=== PATIENT | female | born 1980 | race Caucasian/White ===

== ENCOUNTER 2021-03-08 19:47 | Emergency (ER) | payer OTHER, SELFPAY ==
--- NOTE | ~2021-03-08 | CT_ITS ---
EXAMINATION: CT abdomen pelvis w con DATE: 03/08/2021 22:16 INDICATION: Lower abdominal pain and vomiting TECHNIQUE: Computed tomography (CT) of the abdomen and pelvis was performed with 100 cc Omnipaque 350 intravenous contrast. The dose-length product was 429.16 mGy-cm. Automated exposure control and iter ative reconstruction technique were employed. COMPARISON: None. FINDINGS: There are calcified granulomas in the lung bases. Heart size normal. No significant pleural or pericardial effusion. No significant vascular abnormality. No lymphadenopathy. Small hiatal herni a. Fatty infiltration of the liver. Status post cholecystectomy. The spleen, pancreas, adrenal glands and kidneys are unremarkable. There is mild diffuse subcutaneous edema with multiple subcutaneous no dules, likely injection granulomas. No abnormal pelvic masses or fluid collections. Nonobstructive raghavendra wel gas pattern. Normal appendix. No free air or free fluid. No acute osseous abnormality. No lytic o r blastic lesions. IMPRESSION: 1. No acute abdominal abnormality. 2: Small hiatal hernia. 3: Hepatic steatosis. Reviewed, dictated and finalized at location A.
[2021-03-08 19:50] VITALS: BP 156/120; PULSE 122; RESP 18; TEMP 36.8; O2SAT 98
[2021-03-08 20:09] LABS: Basophils Percent Auto 0.3 % (0.2-1.2); Eosinophils Percent Auto 0.1 % (0-4.4); Hematocrit 40.9 % (37.0-47.0); Hemoglobin 13.7 g/dL (12.0-15.0); Immature Granulocyte Absolute 0.03 K/mm3 (0.00-0.031); Immature Granulocyte Percent A 0.3 % (0-0.5); Lymphocytes Absolute Auto 1.37 K/mm3 (0.9-3.2); Lymphocytes Percent Auto 13.7 % (18.3-44.2); Mean Corpuscular HGB Conc 33.5 g/dl (32-36); Mean Corpuscular Hemoglobin 28.5 pg (26-34); Mean Corpuscular Volume 85.2 fl (80-100); Mean Platelet Volume 9.8 fl (7.4-10.4); Monocytes Absolute Auto 0.4 K/mm3 (0.1-0.6); Monocytes Percent Auto 4.4 % (2.6-8.5); Neutrophils Absolute Auto 8.1 K/mm3 (1.3-6.7); Neutrophils Percent Auto 81.2 % (45.5-73.1); Platelet Count Result 367 k/mm3 (150-375); Red Cell Distribution Width 13.5 % (11.5-14.5)
[2021-03-08 20:18] LABS: Lipase 75 U/L (23-300)
[2021-03-08 20:28] LABS: Glucose Point of Care 215 mg/dl (65-105)
[2021-03-08] MEDS: Please add drug allergy info to patient profile. 1 EACH XX (20:30)
[2021-03-08] MEDS: ONDANSETRON INJ 4 MG/2 ML VIAL IV PUSH (20:31)
[2021-03-08] MEDS: SODIUM CHLORIDE 0.9% IV 1,000 ML 999 ML IV CONT ×2 (20:31→21:18)
[2021-03-08] MEDS: FAMOTIDINE 20 MG/2 ML VIAL IV PUSH (20:31)
[2021-03-08 20:34] VITALS: BP 194/116; PULSE 108; RESP 18; O2SAT 100
[2021-03-08 21:14] LABS: Alanine Aminotransferase 20 U/L (4-35); Albumin Level 4.9 g/dL (3.5-5.1); Alkaline Phosphatase 103 U/L (38-126); Anion Gap 18 mmol/L (8-16); Aspartate Amino Transferase 32 U/L (14-36); Bilirubin,Total 0.6 mg/dL (0.2-1.3); Blood Urea Nitrogen 14 mg/dL (7-17); Calcium 10.4 mg/dL (8.4-10.2); Carbon Dioxide 21 mmol/L (22-30); Chloride 99 mmol/L (98-107); Estimated CRCL calculation 105 ml/min; Estimated Glomerular Filt Rate > 60; Glucose 221 mg/dL (65-105); Potassium 3.6 mmol/L (3.4-5.0); Sodium 138 mmol/L (137-145)
[2021-03-08] MEDS: MORPHINE SULFATE (*CRX) 4 MG/ML INJ IV PUSH (21:17)
[2021-03-08 21:23] LABS: Magnesium 1.4 mg/dL (1.6-2.3); Phosphorus 2.8 mg/dL (2.5-4.5)
[2021-03-08] MEDS: LORazepam INJ (*CRX) 2 MG/ML VIAL 1 MG IV PUSH (21:24)
[2021-03-08 21:28] LABS: Beta-Hydroxybutyrate/Acetoacetate 1.06 mmol/L (0.02-0.27)
[2021-03-08] MEDS: MAGNESIUM SULF 2 GM/WATER 50ML 2 GM/50 ML BAG IVPB (21:35)
[2021-03-08 21:36] VITALS: BP 122/73; PULSE 106; RESP 20; O2SAT 99
[2021-03-08 22:12] LABS: Add Urine Microscopic? YES; Appearance Urine Clear (Clear); Bilirubin Urine Negative (Negative); Blood Urine Negative (Negative); Color Urine Straw (Yellow); Glucose Urine UA 3+ mg/dL (Negative); Ketones Urine 1+ mg/dL (Negative); Leukocyte Esterase Ur Negative LEU/UL (Negative); Mucus Urine Rare /lpf; Nitrate Urine Negative (Negative); Protein Urine 1+ mg/dL (Negative); RBC Urine 0-2 /hpf (0-2); Specific Grav Ur 1.014 (1.001-1.035); Squamous Epithelial Cell Urine Rare /hpf (Few); Urobilinogen Urine Negative mg/dL (<2.0); WBC Urine 0-3 /hpf
--- NOTE | 2021-03-08 22:25 | ED.GENADULT ---
HPI - General Adult General Chief complaint: Nausea/Vomiting/Diarrhea Stated complaint: vomiting Time Seen by Provider: 03/08/21 19:56 Source: patient, family and RN notes reviewed Mode of arrival: ambulatory Limitations: no limitations History of Present Illness HPI narrative: Patient is a 40-year-old female who presents to emergency department for evaluation of abdominal pain and nausea and vomiting that began last night patient notes multiple episodes of emesis with dry retching she states that she has had generalized abdominal pain as well patient is insulin-dependent diabetic with a history of hypertension and notes that she has been unable to take her medications. [place] is from [place] with her who is a national flatbed truck driver. Review of Systems Review of Systems: All systems reviewed & are unremarkable except as noted in HPI and below PMFSH Past Medical History Medical History (Updated 03/08/21 @ 22:51 by Perry Irwin PA-C) Diabetes mellitus Hypertension Social History Social History (Updated 03/08/21 @ 22:30 by Perry Irwin PA-C) Smoking status: Never smoker Exam Narrative: Exam Narrative: GENERAL: Well-appearing, well-nourished, uncomfortable and in no acute distress. HEAD: Normocephalic, atraumatic. EYES: PERRLA and EOMI. ENT: Nares clear, no rhinorrhea or epistaxis. Mucous membranes moist. CHEST: Clear to auscultation. No respiratory distress. No wheezes rales or rhonchi HEART: Regular rate and rhythm. No murmur heard. Normal peripheral pulses. ABDOMEN: Soft, diffusely tender, nondistended EXTREMITIES: Normal range of motion. No edema. SKIN: Warm, dry, no rash. NEURO: No focal deficits. Alert and oriented x3. Cranial nerves II through XII grossly intact PSYCH: Normal mood and affect. Course Vital Signs Vital signs: Vital Signs Temperature 98.2 F 03/08/21 19:50 Pulse Rate 122 H 03/08/21 19:50 Respiratory Rate 18 03/08/21 19:50 Blood Pressure 156/120 H 03/08/21 19:50 Pulse Oximetry 98 03/08/21 19:50 Temperature 98.2 F 03/08/21 19:50 Pulse Rate 106 H 03/08/21 21:36 Respiratory Rate 20 03/08/21 21:36 Blood Pressure 122/73 03/08/21 21:36 Pulse Oximetry 99 03/08/21 21:36 Medical Decision Making MDM Narrative Medical decision making narrative: Patient presented with abdominal pain and vomiting no high risk changes in the blood work or imaging has been hydrated has improved condition tolerating p.o. intake afebrile nontoxic-appearing no distress unsure as to the etiology of her vomiting abdominal pain but it has resolved she will follow up with primary care upon returning home has been given reasons to return Vital Signs Vital Signs: Vital Signs Temperature 98.2 F 03/08/21 19:50 Pulse Rate 122 H 03/08/21 19:50 Respiratory Rate 18 03/08/21 19:50 Blood Pressure 156/120 H 03/08/21 19:50 Pulse Oximetry 98 03/08/21 19:50 Temperature 98.2 F 03/08/21 19:50 Pulse Rate 106 H 03/08/21 21:36 Respiratory Rate 20 03/08/21 21:36 Blood Pressure 122/73 03/08/21 21:36 Pulse Oximetry 99 03/08/21 21:36 Lab Data Result diagrams: 03/08/21 20:03 03/08/21 20:03 Labs: Lab Results 03/08/21 03/08/21 03/08/21 Range/Units 20:03 20:03 20:03 WBC 10.0 (4.5-10.0) K/mm3 RBC 4.80 (4.2-5.4) M/mm3 Hgb 13.7 (12.0-15.0) g/dL Hct 40.9 (37.0-47.0) % MCV 85.2 (80-100) fl MCH 28.5 (26-34) pg MCHC 33.5 (32-36) g/dl RDW 13.5 (11.5-14.5) % Plt Count 367 (150-375) k/mm3 MPV 9.8 (7.4-10.4) fl Immature Gran % (Auto) 0.3 (0-0.5) % Neut % (Auto) 81.2 H (45.5-73.1) % Lymph % (Auto) 13.7 L (18.3-44.2) % Bailey % (Auto) 4.4 (2.6-8.5) % Eos % (Auto) 0.1 (0-4.4) % Baso % (Auto) 0.3 (0.2-1.2) % Lymph # (Auto) 1.37 (0.9-3.2) K/mm3 Bailey # (Auto) 0.4 (0.1-0.6) K/mm3 Eos # (Auto) 0.0 (0-0.3) K/mm3 Baso # (Auto) 0.0 (0.0-0.
[2021-03-08] MEDS: PROMETHAZINE HCL 25 MG/ML AMPUL 12.5 MG IV PUSH (23:21)
[2021-03-08 23:23] VITALS: BP 128/92; PULSE 72; RESP 18; O2SAT 100
[2021-03-08 23:58] VITALS: BP 137/93; PULSE 110; RESP 18; O2SAT 98
== END 2021-03-09 | disposition home or self-care (01) ==
PROVIDERS: Emergency Medicine Emergency Medical Services; Emergency Provider Emergency Medicine
DX: R10.84 Generalized abdominal pain (principal); K76.0 Fatty (change of) liver, not elsewhere classified
CPT/HCPCS: 36415; 74177; 80053; 81001; 81025; 82010; 82948; 83690; 83735; 84100; 85025; 96361; 96365; 96366; 96375; 99284; J2060; J2270; J2405; J2550; J3475; J7030; Q9967